=== PATIENT | male | born 1975 | race African-American/Black ===

== ENCOUNTER 2024-06-24 01:18 | Emergency (ER) | payer MEDICAID ==
[~2024-06-24] VITALS: Ht 182.9 cm; Wt 80.0 kg
[2024-06-24] MEDS: LORAZEPAM 2MG/ML INJ IM ONE (02:00)
[2024-06-24] MEDS: HALOPERIDOL LACTATE 5MG/ML VIAL IM ONE (02:25)
[2024-06-24] MEDS: DIPHENHYDRAMINE 50MG/ML VIAL IM ONE (02:25)
[2024-06-24 02:45] VITALS: O2SAT 98
[2024-06-24 03:08] LABS: BASOPHILS % 0.5 % (0.0-2.0); DIFFERENTIAL COMMENT 0; EOSINOPHILS % 2.5 % (0.0-5.0); HEMATOCRIT. 40.7 % (42.0-52.0); HEMOGLOBIN. 12.7 g/dL (14.0-18.0); LYMPHOCYTES % 22.2 % (20.0-50.0); MEAN CORPUSCULAR HEMOGLOBIN 23.2 pg (28.0-32.0); MEAN CORPUSCULAR HGB CONC 31.3 g/dL (31.0-37.0); MEAN CORPUSCULAR VOLUME 74.2 fL (80.0-94.0); MEAN PLATELET VOLUME 8.4 fl (7.4-10.4); MONOCYTES % 8.6 % (2.0-8.0); NEUTROPHILS % 66.2 % (40.0-76.0); PLATELET 260 x1000/uL (130-400); RED BLOOD CELL COUNT 5.48 mill/uL (4.7-6.1); RED CELL DISTRIBUTION WIDTH 13.3 % (11.6-14.6); WHITE BLOOD COUNT 8.9 x1000/uL (4.5-11.0)
[2024-06-24 03:19] LABS: CHLORIDE 101 mEq/L (98-107); POTASSIUM 4.3 mEq/L (3.5-5.1); SODIUM 139 mEq/L (136-145)
[2024-06-24 03:20] LABS: CALCIUM 9.7 mg/dL (8.7-10.4); CARBON DIOXIDE 28 mEq/L (21-32)
[2024-06-24 03:22] LABS: *AMPHETAMINES SCREEN URINE PRESUMPTIVE POSITIVE (NEGATIVE); *BARBITURATES SCREEN URINE NEGATIVE (NEGATIVE); *BENZODIAZEPINES SCREEN URINE NEGATIVE (NEGATIVE); *COCAINE SCREEN URINE NEGATIVE (NEGATIVE); METHADONE URINE SCREEN NEGATIVE (NEGATIVE); OPIATES URINE SCREEN NEGATIVE (NEGATIVE); PHENCYCLIDINE URINE SCREEN NEGATIVE (NEGATIVE)
[2024-06-24 03:23] LABS: CANNABINOID URINE SCREEN NEGATIVE (NEGATIVE); ECSTASY MDMA SCREEN URINE CONF.TEST INDICATED (NEGATIVE)
[2024-06-24 03:25] LABS: CREATININE 1.4 mg/dL (0.6-1.3); GLUCOSE 133 mg/dL (70-105)
[2024-06-24 03:26] LABS: UREA NITROGEN BLOOD 16 mg/dL (9-23)
[2024-06-24 03:27] LABS: ACETAMINOPHEN < 2 ug/mL (10-30)
[2024-06-24 03:38] LABS: CLARITY URINE CLOUDY (CLEAR); COLOR URINE DARK YELLOW (YELLOW); GLUCOSE URINE NEGATIVE (NEGATIVE); KETONES URINE TRACE (NEGATIVE); LEUKOCYTE ESTERASE URINE NEGATIVE (NEGATIVE); NITRITE URINE NEGATIVE (NEGATIVE); OCCULT BLOOD URINE NEGATIVE (NEGATIVE); PH URINE 5.5 (4.5-8.0); PROTEIN URINE 2+ (NEGATIVE); SPECIFIC GRAVITY URINE 1.034 (1.005-1.030)
[2024-06-24 04:10] LABS: ETHANOL BLOOD < 10 mg/dL (<10)
[2024-06-24 05:36] LABS: RBC URINE 0-2 /hpf (0-2); SQUAMOUS EPITHELIAL CELL URINE FEW /lpf (RARE/1+); WBC URINE 0-2 /hpf (0-2)
[2024-06-24 05:37] LABS: BACTERIA URINE NONE SEEN; CALCIUM OXALATE CRYSTALS URINE 1+ /lpf
[2024-06-24] MEDS: OLANZAPINE 5MG TABLET ODT PO SCH (13:09)
[2024-06-25] MEDS: OLANZAPINE 10 MG/VIAL IM ONE (13:30)
[2024-06-25] MEDS: LORAZEPAM 2MG/ML INJ IM ONE (13:30)
[2024-06-25 16:42] VITALS: BP 102/64; PULSE 93; RESP 16; TEMP 36.7; O2SAT 99
== END 2024-06-25 17:00 ==
LOC: ER 01:18
DX: F29 Unspecified psychosis not due to a substance or known physiological condition (principal); R07.9 Chest pain, unspecified; Z20.822 Contact with and (suspected) exposure to COVID-19
CPT/HCPCS: 80305; 80048; 81003; 80307; 80329; 80320; 85025; 36415; 93005; 96372; 99285; 87426; J1200; J1630; J2060; G0480